=== PATIENT | female | born 1955 | race Caucasian/White ===

== ENCOUNTER 2022-05-31 08:23 | Inpatient (IN) | payer OTHER ==
[2022-05-31] VITALS (9 sets, daily range): BP systolic 102–126; BP diastolic 52–75
[~2022-05-31] VITALS: Ht 162.6 cm; Wt 75.0 kg
[~2022-05-31 08:23] MED LIST: IMIP25TA2 PO; MONT-8 OR; SOLI5SUS PO
[2022-05-31] MEDS ORDERED: ceFAZolin 1GM/50ML 100 ML IV ONE (09:20)
[2022-05-31] MEDS ORDERED: ACETAMINOPHEN IV 100 ML IV ONE (09:20)
[2022-05-31] MEDS ORDERED: MORPHINE SULF PF 5 MG/10 ML VIAL ONE (09:29)
[2022-05-31] MEDS ORDERED: MIDAZOLAM HCL 2MG/2ML 2ml VIAL (1mg/ml) ONE (09:29)
[2022-05-31] MEDS ORDERED: fentaNYL CITRATE 100 MCG/2 ML VL ONE (09:29)
[2022-05-31] MEDS ORDERED: CELECOXIB 100 MG CAP PO ONE (09:30)
[2022-05-31] MEDS ORDERED: PROPOFOL 10 MG/ML 20 ML IV ONE (09:30)
[2022-05-31] MEDS ORDERED: PREGABALIN CAPSULE 75 MG CAP PO ONE (09:30)
[2022-05-31] MEDS ORDERED: ACETAMINOPHEN IV 1000 MG/100ML (10MG/ML) IV ONE (09:30)
[2022-05-31] MEDS ORDERED: BUPIVACAINE 0.25% INJ 50ML VIAL ONE (09:42)
[2022-05-31] MEDS ORDERED: TRANEXAMIC ACID 20 ML ONE (09:42)
[2022-05-31] MEDS ORDERED: VANCOMYCIN HCL 1000 MG VL ONE (09:43)
[2022-05-31] MEDS ORDERED: KETOROLAC TROMETH 60MG/2ML VIAL ONE (09:43)
[2022-05-31] MEDS ORDERED: TETRACAINE 1% INJ 2 ML VIAL IJ ONE (10:00)
[2022-05-31] MEDS ORDERED: DexAMETHasone SOD PHOS 10MG/1ML VIAL INJ IV PRN (11:00)
[2022-05-31] MEDS ORDERED: HYDROmorphone HCL 2 MG/ML VL/or syr IV PRN ×3 (11:00→13:30)
[2022-05-31] MEDS ORDERED: ePHEDrine SULFATE 50 MG/ML AMP IV PRN (11:00)
[2022-05-31] MEDS ORDERED: MORPHINE SULFATE 4 MG/ML SYR/VIAL IV PRN (11:00)
[2022-05-31] MEDS ORDERED: NALBUPHINE HCL 10 MG/1ml INJECTION SUBCUT ONE (11:00)
[2022-05-31] MEDS ORDERED: diphenhdrAMINE HCL 50 MG/1 ML VL IV PRN (11:00)
[2022-05-31] MEDS ORDERED: LABETALOL HCL 5 MG/ML 4ML SYRINGE IV PRN (11:00)
[2022-05-31] MEDS ORDERED: MIDAZOLAM HCL 2MG/2ML 2ml VIAL (1mg/ml) IV PRN (11:00)
[2022-05-31] MEDS ORDERED: NALOXONE HCL 0.4 MG/ML VIAL IV PRN (11:00)
[2022-05-31] MEDS ORDERED: ONDANSETRON HCL 4 MG/2 ML VIAL IV PRN ×2 (11:00→13:30)
[2022-05-31] MEDS ORDERED: DexAMETHasone SOD PHOS 4 MG/1ML SDV INJ ONE (11:35)
[2022-05-31] MEDS ORDERED: NITROGLYCERIN 0.4 MG SL TAB SL PRN (13:30)
[2022-05-31] MEDS ORDERED: MORPHINE SULFATE INJ 2 MG/ml SYRG IV PRN (13:30)
[2022-05-31] MEDS ORDERED: ceFAZolin 1GM/50ML 50 ML IV SCH (13:30)
[2022-05-31] MEDS ORDERED: OXYCODONE W/ ACETAMINOPHEN 5/325MG TABLET PO PRN (13:30)
[2022-05-31] MEDS: SODIUM CHLOR 0.9% PF (SALINE LOCK) 10ML VIAL/SYR IV SCH (21:43)
[2022-05-31] MEDS: ceFAZolin 1GM/50ML 50 ML IV SCH (21:44)
[2022-05-31] MEDS: DOCUSATE SOD 100 MG CAP PO SCH (21:44)
[2022-05-31] MEDS: LACTATED RINGER'S 1,000 ML IV SCH (23:30)
[2022-06-01] VITALS (16 sets, daily range): BP systolic 108–148; BP diastolic 46–114
[2022-06-01] MEDS: ceFAZolin 1GM/50ML 50 ML IV SCH (03:50)
[2022-06-01] MEDS: SODIUM CHLOR 0.9% PF (SALINE LOCK) 10ML VIAL/SYR IV SCH ×3 (05:22→21:42)
[2022-06-01 06:57] LABS: Hematocrit 27.5 % (36.0-46.0); Hemoglobin 9.7 g/dL (12.2-16.2)
[2022-06-01 07:19] LABS: BUN/Creatinine Ratio 20.8; Calcium 8.4 mg/dL (8.5-10.1); Potassium 4.3 mmol/L (3.5-5.1)
[2022-06-01 07:22] LABS: Bilirubin, Total 0.8 mg/dL (0.2-1.0); Total Protein 6.2 g/dL (6.4-8.2)
[2022-06-01] MEDS: SOLIFENACIN SUCCINATE 5 MG PO SCH (08:37)
[2022-06-01] MEDS: MONTELUKAST SODIUM 10 MG TAB PO SCH (08:37)
[2022-06-01] MEDS: DOCUSATE SOD 100 MG CAP PO SCH ×2 (08:37→21:42)
[2022-06-01] MEDS: ENOXAPARIN SOD 40 MG/0.4 ML SYRINGE SC SCH (10:00)
[2022-06-01] MEDS: ACETAMINOPHEN 325 MG TAB PO PRN ×2 (10:28→16:50)
[2022-06-01] MEDS: LACTATED RINGER'S 1,000 ML IV SCH ×2 (14:31→19:30)
[2022-06-02 05:11] VITALS: BP 122/58
[2022-06-02] MEDS: LACTATED RINGER'S 1,000 ML IV SCH (05:30)
[2022-06-02] MEDS: ACETAMINOPHEN 325 MG TAB PO PRN ×2 (06:24→13:05)
[2022-06-02] MEDS: SODIUM CHLOR 0.9% PF (SALINE LOCK) 10ML VIAL/SYR IV SCH ×2 (06:24→14:00)
[2022-06-02 07:16] LABS: Hemoglobin 8.2 g/dL (12.2-16.2)
[2022-06-02 07:18] LABS: Hematocrit 23.3 % (36.0-46.0)
[2022-06-02 09:00] VITALS: BP 129/60
[2022-06-02] MEDS: SOLIFENACIN SUCCINATE 5 MG PO SCH (10:00)
[2022-06-02] MEDS: DOCUSATE SOD 100 MG CAP PO SCH (10:35)
[2022-06-02] MEDS: ENOXAPARIN SOD 40 MG/0.4 ML SYRINGE SC SCH (10:35)
[2022-06-02] MEDS: MONTELUKAST SODIUM 10 MG TAB PO SCH (10:35)
[2022-06-02 12:30] VITALS: BP 142/61
== END 2022-06-02 16:15 | disposition home health service (06) | DRG 470 ==
LOC: SUR 08:23 → OVERFLOW 13:33 → TELE 14:07 → TELE-WESTW 17:12
PROVIDERS: ADMIT Orthopaedic Surgery Adult Reconstructive Orthopaedic Surgery; ATTEND Orthopaedic Surgery Adult Reconstructive Orthopaedic Surgery
PROC: 0SRB06A Replacement of Left Hip Joint with Oxidized Zirconium on Polyethylene Synthetic Substitute, Uncemented, Open Approach (ICD-10-PCS; principal; 2022-05-31 10:22)
DX: M16.12 Unilateral primary osteoarthritis, left hip (principal); R71.0 Precipitous drop in hematocrit; Z20.822 Contact with and (suspected) exposure to COVID-19
CPT/HCPCS: 36415; 72170; 80053; 85014; 85018; 86850; 86900; 86901; 97110; 97116; 97163; 97530; G0378; J0131; J0690; J1100; J1885; J2250; J2704; J3490